=== PATIENT | female | born 1965 | race Caucasian/White ===

== ENCOUNTER 2024-09-16 06:31 | Day surgery (SDC) | payer OTHER ==
[~2024-09-16] VITALS: Ht 165.1 cm; Wt 104.5 kg
[~2024-09-16 06:31] MED LIST: HYDR25TA2 PO; LOSA100T59 PO; METO50 PO; OMEP20CA12 PO; SEMA1PEN3 IM
[2024-09-16] MEDS ORDERED: ALBUTEROL SULFATE 2.5 MG/0.5 ML NEB SOLUTION NEB ONE (06:32)
[2024-09-16] MEDS ORDERED: LIDOCAINE 4% 50 ML SOLUTION TP ONE (06:32)
[2024-09-16] MEDS ORDERED: BENZOCAINE 20% 50 MCG/SPRAY 57 GM TP ONE (06:32)
[2024-09-16] MEDS ORDERED: LIDOCAINE 2% 11 ML JELLY TP ONE (06:32)
[2024-09-16] MEDS ORDERED: SODIUM CHLORIDE 0.9% 1,000 ML ONE (07:41)
[2024-09-16] MEDS: SODIUM CHLORIDE 0.9% 1,000 ML IV ONE (08:13)
[2024-09-16] MEDS ORDERED: MIDAZOLAM HCL 2 MG/2 ML VIAL ONE (08:48)
[2024-09-16] MEDS ORDERED: FentaNYL CITRATE PF 100 MCG/2 ML VIAL ONE (08:48)
[2024-09-16 09:25] VITALS: PULSE 67; RESP 20; O2SAT 98
[2024-09-16] MEDS ORDERED: MethylPREDNISolone SOD SUCC 125 MG/2 ML VIAL ONE (09:57)
[2024-09-16] MEDS: MethylPREDNISolone SOD SUCC 125 MG/2 ML VIAL IVP ONE (10:09)
== END 2024-09-16 12:40 | disposition home or self-care (01) ==
LOC: SURGERY 06:31
PROVIDERS: ATTEND Internal Medicine Critical Care Medicine
DX: R05.3 Chronic cough (principal); J38.4 Edema of larynx; B37.0 Candidal stomatitis; I10 Essential (primary) hypertension; Z98.890 Other specified postprocedural states
CPT/HCPCS: 31623; 87206; 87101; 87220; 87070; 88108; 31624; 71045; 87015; J3010; J2250; J2919; J7030; J7613; Z7610